=== PATIENT | female | born 1970 | race Two or more races ===

== ENCOUNTER 2019-05-05 19:40 | Emergency (ER) | payer MEDICARE, MEDICAID ==
[2019-05-05 20:58] LABS: ABSOLUTE BASOPHILS # (AUTO) 0.1 10^3/uL (0.0-0.2); ABSOLUTE LYMPHOCYTES (AUTO) 1.8 10^3/uL (0.5-4.7); ABSOLUTE MONOCYTES (AUTO) 0.8 10^3/uL (0.1-1.4); ABSOLUTE NEUT (AUTO) 10.3 10^3/uL (1.7-8.2); BASOPHILS % (AUTO) 0.5 % (0-2); HEMATOCRIT 43.5 % (36.0-47.0); HEMOGLOBIN 15.2 g/dL (12.0-15.5); LYMPHOCYTES % (AUTO) 14.1 % (13-45); MEAN CORPUSCULAR HEMOGLOBIN 35.9 pg (27.0-33.4); MEAN CORPUSCULAR HGB CONC 34.9 g/dL (32.0-36.0); MEAN CORPUSCULAR VOLUME 103 fl (80-97); PLATELET COUNT 285 10^3/uL (150-450); RED BLOOD COUNT 4.24 10^6/uL (3.72-5.28); RED CELL DISTRIBUTION WIDTH 13.2 % (11.5-14.0); SEGMENTED NEUTROPHILS % (AUTO) 79.4 % (42-78); TOTAL CELLS COUNTED % (AUTO) 100 %
[2019-05-05] MEDS ORDERED: NORMAL SALINE 1000 ML 1,000 ML IV ONE (21:15)
[2019-05-05] MEDS ORDERED: ONDANSETRON HCL INJ/PF 4 MG/2 ML SDV IV ONE (21:15)
--- NOTE | 2019-05-05 21:18 | ER Document Report ---
ED General - General Chief Complaint: Nausea/Vomiting/Diarrhea Stated Complaint: NAUSEA Time Seen by Provider: 05/05/19 21:08 Mode of Arrival: Ambulatory Information source: Patient, Relative Cannot obtain history due to: Dementia TRAVEL OUTSIDE OF THE [place] IN LAST 30 DAYS: No - HPI Onset: Other - Since last Sunday Onset/Duration: Gradual Quality of pain: Achy Severity: Moderate Pain Level: 1 Associated symptoms: Diarrhea, Nausea, Vomiting Exacerbated by: Food Relieved by: Denies Similar symptoms previously: No Recently seen / treated by doctor: No Notes: 48 year old female with a history of Down Syndrome, Alzheimer's, and a Heart Murmur here for nausea, vomiting, diarrhea, and weakness since last Sunday (4 days ago). The patient has a relative who had similar symptoms which lasted about 24 hours. The patient has not been on antibiotics recently nor has she traveled outside the [place]. - Related Data Allergies/Adverse Reactions: No Known Allergies Allergy (Unverified 05/05/19 20:26) Home Medications: Celebrex 200mg qd. omeprazole 40mg qd. linzess 145mcg qd Past Medical History - General Information source: Patient, Relative - Social History Smoking Status: Never Smoker Frequency of alcohol use: None Drug Abuse: None Lives with: Family Family History: Reviewed & Not Pertinent Patient has suicidal ideation: No Patient has homicidal ideation: No - Medical History Medical History: Other - Down Syndrome - Past Medical History Cardiac Medical History: Reports: Hx Heart Murmur Neurological Medical History: Reports: Other - Alzheimer's Review of Systems - Review of Systems Constitutional: Chills, Weakness EENT: No symptoms reported Cardiovascular: No symptoms reported Respiratory: Cough Gastrointestinal: Diarrhea, Nausea, Vomiting Genitourinary: Burning Female Genitourinary: No symptoms reported Musculoskeletal: No symptoms reported Skin: No symptoms reported Hematologic/Lymphatic: No symptoms reported Neurological/Psychological: No symptoms reported -: Yes All other systems reviewed and negative Physical Exam - Vital signs Vitals: Temp Resp Pulse Ox 97.9 F 21 H 99 05/05/19 19:44 05/05/19 19:44 05/05/19 19:44 - Notes Notes: GENERAL: Somewhat ill appearing, dry mucus membranes, no acute distress. HEAD: Atraumatic, normocephalic. EYES: Pupils equal round and reactive to light, extraocular movements intact, sclera anicteric, conjunctiva are normal. ENT: Nares patent, oropharynx clear without exudates. NECK: Normal range of motion, supple without lymphadenopathy or JVD. LUNGS: Breath sounds clear to auscultation bilaterally and equal. No wheezes ra les or rhonchi. HEART: Regular rate and rhythm without murmurs, rubs or gallops. ABDOMEN: Soft, nontender, normoactive bowel sounds. No guarding, no rebound. No masses appreciated. EXTREMITIES: Normal range of motion, no pitting or edema. No clubbing or cyanosis. NEUROLOGICAL: Patient is at her mental baseline per report of family. Cranial nerves II through XII grossly intact. PSYCH: Normal mood, normal affect. SKIN: Warm, Dry, normal turgor, no rashes or lesions noted. Course - Re-evaluation Re-evalutation: 05/06/19 00:55 The patient has nausea, vomiting, and diarrhea which is consistent with a Viral GI Infection given a family member had the same symptoms. The patient felt much better after fluids and zofran. Patient's labs and physical exam consistent with mild to moderate dehydration. Patient tolerating POs in the ER prior to discharge. - Vital Signs Vital signs: Temp Pulse Resp BP Pulse Ox 97.9 F 23 H 128/78 H 100 05/05/19 19:44 05/05/19 23:00 05/05/19 20:06 05/05/19 23:00 - Laboratory Result Diagrams: 05/05/19 20:37 05/05/19 20:37 Laboratory results interpreted by me: 05/05/19 05/05/19 05/05/19 20:37 20:37 22:25 WBC 13.0 H MCV 103 H MCH 35.9 H Absolute Neuts (auto) 10.3 H Seg Neutrophils % 79.4 H Carbon Dioxide 19 L Creatinine 0.49 L Glucose 118 H ALT 40 H Urine Protein 30 H Urine Ketones 80 H Urine Urobilinogen 2.0 H - Diagnostic Test Radiology reviewed: Image reviewed, Reports reviewed Discharge - Discharge Clinical Impression: Nausea & vomiting Qualifiers: Vomiting type: unspecified Vomiting Intractability: unspecified Qualified Code(s): R11.2 - Nausea with vomiting, unspecified Diarrhea Qualifiers: Diarrhea type: unspecified type Qualified Code(s): R19.7 - Diarrhea, unspecified Condition: Stable Disposition: HOME, SELF-CARE Instructions: Diarrhea, Nonspecific ([facility]), Vomiting ([facility]) Additional Instructions: Use Zofran as needed for nausea. Drink plenty of fluids in the days to come. Follow up with your primary care doctor. Return to an ER if you are worse in anyway. Prescriptions: Ondansetron [Zofran Odt 4 mg Tablet] 1 tab PO Q6H PRN #15 tab.rapdis PRN Reason: For Nausea/Vomiting
[2019-05-05 21:20] LABS: ALBUMIN 4.1 g/dL (3.5-5.0); ALKALINE PHOSPHATASE 96 U/L (38-126); ANION GAP 15 (5-19); ASPARTATE AMINO TRANSFERASE 35 U/L (14-36); BILIRUBIN,DIRECT 0.2 mg/dL (0.0-0.4); BILIRUBIN,TOTAL 0.6 mg/dL (0.2-1.3); BLOOD UREA NITROGEN 13 mg/dL (7-20); CALCIUM 9.4 mg/dL (8.4-10.2); CARBON DIOXIDE 19 mmol/L (22-30); CHLORIDE 104 mmol/L (98-107); GLUCOSE 118 mg/dL (75-110); POTASSIUM 3.7 mmol/L (3.6-5.0); TOTAL PROTEIN 8.2 g/dL (6.3-8.2)
--- NOTE | 2019-05-05 22:27 | RADIOLOGY REPORT (SQ) ---
PA and lateral chest radiograph: 05/05/2019 9:25 PM CDT Comparison: None available Indication: 48-year old patient with concern for pneumonia. Findings: The cardiomediastinal silhouette is normal in size.No pneumothorax is seen. No acute airspace opacities are seen. No discrete pleural effusion is apparent. Atherosclerotic calcifications are seen at the aortic arch. Midline sternotomy changes are seen. Impression: No acute airspace opacities are seen.
[2019-05-05 23:00] LABS: APPEARANCE,URINE CLOUDY; BILIRUBIN,URINE NEGATIVE (NEGATIVE); COLOR,URINE AMBER; GLUCOSE, URINE NEGATIVE (NEGATIVE); KETONES,URINE 80 mg/dL (NEGATIVE); LEUKOCYTE ESTERASE,URINE NEGATIVE (NEGATIVE); NITRITE,URINE NEGATIVE (NEGATIVE); PROTEIN,URINE 30 mg/dL (NEGATIVE)
[2019-05-05 23:13] LABS: A TYPE INFLUENZA AG NEGATIVE (NEGATIVE); B INFLUENZA AG NEGATIVE (NEGATIVE)
[2019-05-06 01:01] VITALS: BP 110/68
== END 2019-05-06 01:12 | disposition home or self-care (01) ==
LOC: ER 19:40
DX: R11.2 Nausea with vomiting, unspecified (principal); R19.7 Diarrhea, unspecified; R53.1 Weakness; Q90.9 Down syndrome, unspecified; G30.9 Alzheimer's disease, unspecified; F02.80 Dementia in other diseases classified elsewhere, unspecified severity, without behavioral disturbance, psychotic disturbance, mood disturbance, and anxiety
CPT/HCPCS: 99284; 96374; 36415; 83690; 83735; 85025; 80053; 81001; 87804; 71046; J2405; J7030